=== PATIENT | female | born 1955 | race Caucasian/White ===

== ENCOUNTER → 2016-08-31 | Outpatient (REF) | payer BC ==
[2016-08-31 16:57] LABS: BASO # 0.1 K/mm3 (0.0-0.2); BASO % 1.3 % (0.0-1.0); EOS # 0.1 K/mm3 (0.0-0.50); EOS % 2.7 % (0.0-3.0); LARGE UNSTAINED CELL # 0.2 K/mm3 (0.0-0.4); LARGE UNSTAINED CELL % 3.4 % (0.0-4.0); LYMPH # 1.8 K/mm3 (1.5-4.5); LYMPH % 38.8 % (24.0-44.0); MEAN CORPUSCULAR HEMOGLOBIN 27.9 pg (27.0-33.0); MEAN CORPUSCULAR HGB CONC 33.1 g/dl (32.0-36.5); MEAN CORPUSCULAR VOLUME 84.3 fl (80.0-96.0); MONO # 0.3 K/mm3 (0.0-0.8); MONO % 6.2 % (0.0-5.0); NEUTROPHILS # 2.2 K/mm3 (1.8-7.7); NEUTROPHILS % 47.6 % (36.0-66.0); PLATELET COUNT, AUTOMATED 225 k/mm3 (150-450); RED CELL DISTRIBUTION WIDTH 13.9 % (11.5-14.5); WHITE BLOOD COUNT 4.5 K/mm3 (4.0-10.0)
[2016-08-31 17:09] LABS: ALBUMIN/GLOBULIN RATIO 1.21 (1.00-1.93); ALKALINE PHOSPHATASE 53 U/L (45-117); ALT/SGPT 29 U/L (12-78); ANION GAP 8 MEQ/L (8-16); AST/SGOT 21 U/L (15-37); BILIRUBIN,TOTAL 0.5 MG/DL (0.2-1.0); BLOOD UREA NITROGEN 16 MG/DL (7-18); CALCIUM LEVEL 9.4 MG/DL (8.8-10.2); CARBON DIOXIDE LEVEL 28 MEQ/L (21-32); CHLORIDE LEVEL 102 MEQ/L (98-107); CHOLESTEROL LEVEL 257 MG/DL (<200); CREATININE FOR GFR 0.92 MG/DL (0.55-1.02); GLOMERULAR FILTRATION RATE > 60.0 (>45); GLUCOSE, FASTING 92 MG/DL (80-110); POTASSIUM SERUM 4.1 MEQ/L (3.5-5.1); SODIUM LEVEL 138 MEQ/L (136-145); TOTAL PROTEIN 7.3 GM/DL (6.4-8.2); TRIGLYCERIDES LEVEL 66 MG/DL (<150)
== END ==
LOC: M SFHCCLAY 10:14
PROVIDERS: ATTEND Physician Assistant
DX: R53.83 Other fatigue (principal); E78.5 Hyperlipidemia, unspecified

== ENCOUNTER → 2017-01-29 | Outpatient (CLI) | payer BC ==
--- NOTE | 2017-01-29 15:39 | REP ---
Clinical: thoracic pain. Technique: AP, lateral, and swimmers views. Findings: Alignment and kyphosis is maintained. Vertebral bodies intact. No acute fracture / compression injury or subluxation. Minimal age-related changes include marginal spurring with endplate sclerosis. Paravertebral soft tissues are normal. Impression: Normal age appropriate thoracic spine series. Signed by David Campbell MD 01/29/2017 03:31 P
--- NOTE | 2017-01-29 15:41 | REP ---
Clinical: Neck pain. Technique: AP, lateral, flexion/extension, bilateral oblique, and open-mouth views of the cervical spine. Findings: Advanced multilevel degenerative changes include marginal osteophytes, endplate sclerosis, disc space narrowing and foraminal narrowing. Findings are most pronounced at the C5-6 and C6-7 levels. No acute fracture / compression injury or subluxation. Alignment maintained. Spinous processes are intact. Prevertebral soft tissues are normal. Open mouth view demonstrates normal C1-C2 articulation and odontoid process. Impression: Moderate/advanced multilevel degenerative changes. Signed by David Campbell MD 01/29/2017 03:32 P
== END ==
LOC: M CLY 14:47
PROVIDERS: ATTEND Nurse Practitioner Family
DX: M50.30 Other cervical disc degeneration, unspecified cervical region (principal)

== ENCOUNTER → 2017-04-12 | Outpatient (REF) | payer BC ==
[2017-04-12 11:38] LABS: BASO # 0.1 10^3/uL (0.0-0.2); BASO % 1.1 % (0.0-1.0); EOS # 0.4 10^3/uL (0.0-0.50); EOS % 5.2 % (0.0-3.0); HEMATOCRIT 36.9 % (36.0-47.0); HEMOGLOBIN 11.9 g/dl (12.0-16.0); IMMATURE GRANULOCYTE % 0.3 % (0-0); LYMPH # 1.8 10^3/uL (1.5-4.5); LYMPH % 25.3 % (24.0-44.0); MEAN CORPUSCULAR HGB CONC 32.2 g/dl (32.0-36.5); MEAN CORPUSCULAR VOLUME 83.7 fl (80.0-96.0); MONO # 0.5 10^3/uL (0.0-0.8); MONO % 7.5 % (0.0-5.0); NEUTROPHILS # 4.3 10^3/uL (1.8-7.7); NEUTROPHILS % 60.6 % (36.0-66.0); PLATELET COUNT, AUTOMATED 246 10^3/uL (150-450); RED BLOOD COUNT 4.41 10^6/uL (4.00-5.40); RED CELL DISTRIBUTION WIDTH 13.5 % (11.5-14.5); WHITE BLOOD COUNT 7.1 10^3/uL (4.0-10.0)
[2017-04-12 12:03] LABS: ERYTHROCYTE SEDIMENTATION RATE 20 mm/hr (0-30)
[2017-04-12 12:08] LABS: ALBUMIN/GLOBULIN RATIO 1.21 (1.00-1.93); ALKALINE PHOSPHATASE 55 U/L (45-117); ALT/SGPT 24 U/L (12-78); ANION GAP 7 MEQ/L (8-16); AST/SGOT 33 U/L (7-37); BILIRUBIN,TOTAL 0.3 MG/DL (0.2-1.0); BLOOD UREA NITROGEN 11 MG/DL (7-18); C REACTIVE PROTEIN QUANTITATIV < 0.30 MG/DL (0.00-0.30); CALCIUM LEVEL 9.2 MG/DL (8.8-10.2); CARBON DIOXIDE LEVEL 28 MEQ/L (21-32); CHLORIDE LEVEL 101 MEQ/L (98-107); CREATININE FOR GFR 1.01 MG/DL (0.55-1.30); GLOMERULAR FILTRATION RATE 59.5 (>45); GLUCOSE, FASTING 114 MG/DL (70-100); POTASSIUM SERUM 4.2 MEQ/L (3.5-5.1); RHEUMATOID FACTOR QUANT < 10.0 IU/ML (0-15.0); SODIUM LEVEL 136 MEQ/L (136-145); TOTAL PROTEIN 7.3 GM/DL (6.4-8.2)
[2017-04-14 14:14] LABS: ANA (HEP2) Positive (.); Lyme Disease IgG Ab 18 kDa Ban Absent (.); Lyme Disease IgG Ab 23 kDa Ban Absent (.); Lyme Disease IgG Ab 28 kDa Ban Absent (.); Lyme Disease IgG Ab 30 kDa Ban Absent (.); Lyme Disease IgG Ab 39 kDa Ban Absent (.); Lyme Disease IgG Ab 41 kDa Ban Absent (.); Lyme Disease IgG Ab 45 kDa Ban Absent (.); Lyme Disease IgG Ab 58 kDa Ban Absent (.); Lyme Disease IgG Ab 66 kDa Ban Absent (.); Lyme Disease IgG Ab 93 kDa Ban Absent (.); Lyme Disease IgG West Blot Int Negative (.); Lyme Disease IgG/IgM Antibodie <0.91 ISR (0.00-0.90); Lyme Disease IgM Ab 23 kDa Ban Absent (.); Lyme Disease IgM Ab 39 kDa Ban Absent (.); Lyme Disease IgM Ab 41 kDa Ban Absent (.); Lyme Disease IgM Ab Quantitati 0.85 index (0.00-0.79); Lyme Disease IgM West Blot Int Negative (.)
[2017-04-14 14:14] LABS: CYCLIC CITRULLINATED PEPTIDE 5 units (0-19)
== END ==
LOC: M SFHCCLAY 09:09
DX: M25.512 Pain in left shoulder (principal); M54.2 Cervicalgia; M47.22 Other spondylosis with radiculopathy, cervical region

== ENCOUNTER → 2017-05-13 | Outpatient (CLI) | payer BC ==
[~2017-05-13] MED LIST: PROHANCE 279.3MG/ML 15ML VIAL (A9576) As Ordered
== END ==
LOC: M RAD 10:11
DX: M47.22 Other spondylosis with radiculopathy, cervical region (principal)

== ENCOUNTER → 2017-05-18 | Outpatient (CLI) | payer BC | LOC: M RAD 08:02 | DX: M25.512 Pain in left shoulder (principal) ==

== ENCOUNTER → 2017-07-29 | Outpatient (CLI) | payer BC ==
[~2017-07-29] MED LIST changes: +ISOVUE-370 76% 100ML VIAL (Q9967) As Ordered; -PROHANCE 279.3MG/ML 15ML VIAL (A9576) As Ordered
== END ==
LOC: M RAD 11:19
DX: R22.1 Localized swelling, mass and lump, neck (principal)
CPT/HCPCS: Q9967

== ENCOUNTER → 2018-01-18 | Outpatient (REF) | payer BC ==
[2018-01-18 18:39] LABS: CREATININE FOR GFR 0.97 MG/DL (0.55-1.30); GLOMERULAR FILTRATION RATE > 60.0 (>45)
[2018-01-18 18:39] LABS: BLOOD UREA NITROGEN 9 MG/DL (7-18)
== END ==
LOC: M LABDRAWC 17:29
DX: M47.892 Other spondylosis, cervical region (principal)
CPT/HCPCS: 82565

== ENCOUNTER 2018-03-23 22:58 | Emergency (ER) | payer BC, OTHER ==
[~2018-03-23] VITALS: Ht 167.6 cm; Wt 59.1 kg
[2018-03-23] MEDS ORDERED: PREG25CA PO (23:12)
[2018-03-23] MEDS ORDERED: GABA-845 PO (23:12)
[2018-03-24 01:23] VITALS: BP 142/68
[2018-03-24] MEDS ORDERED: KETOROLAC 60 MG/2 ML VIAL (J1885) IM ONE (02:15)
--- NOTE | 2018-03-24 02:16 | REP ---
Clinical: Nontraumatic pain left knee. Technique: AP, lateral, bilateral oblique and sunrise views of the left knee. Findings: Mild/early moderate osteoarthritic degenerative changes include subchondral sclerosis primarily involving the lateral tibial plateau with associated joint space narrowing as well as early osteophyte formation along the bilateral femoral condyles, lateral tibial margin, and patellar contour. [place] view demonstrates increase sclerosis along the posterior patellar margin with decreased lateral joint space. No acute fracture dislocation. No significant swelling. No effusion. Impression: Mild/early moderate tricompartmental degenerative changes. Electronically Signed by David Campbell MD 03/24/2018 02:08 A
[2018-03-24] MEDS ORDERED: NAPR-50 PO (02:35)
== END 2018-03-24 02:38 | disposition home or self-care (01) ==
LOC: M ED 22:58
DX: M17.12 Unilateral primary osteoarthritis, left knee (principal); E07.9 Disorder of thyroid, unspecified; E78.5 Hyperlipidemia, unspecified; G89.4 Chronic pain syndrome; Z85.850 Personal history of malignant neoplasm of thyroid; Z79.899 Other long term (current) drug therapy

== ENCOUNTER → 2018-10-06 | Outpatient (REF) | payer OTHER ==
[~2018-10-06] MED LIST changes: +ASPI81TA85 PO; +GABA-845 PO; -ISOVUE-370 76% 100ML VIAL (Q9967) As Ordered; +LEVO137T2 PO; +NAPR-837 PO; +PREG25CA PO; +SIMV40TA2 PO; +TIZA2CAP PO
[2018-10-06 12:01] LABS: BASO # 0.1 10^3/uL (0.0-0.2); BASO % 1.1 % (0.0-1.0); EOS # 0.2 10^3/uL (0.0-0.50); EOS % 3.2 % (0.0-3.0); HEMATOCRIT 36.8 % (36.0-47.0); HEMOGLOBIN 12.1 g/dl (12.0-15.5); LYMPH # 1.9 10^3/uL (1.5-4.5); LYMPH % 40.5 % (24.0-44.0); MEAN CORPUSCULAR HEMOGLOBIN 27.7 pg (27.0-33.0); MEAN CORPUSCULAR HGB CONC 32.9 g/dl (32.0-36.5); MEAN CORPUSCULAR VOLUME 84.2 fl (80.0-96.0); MONO # 0.5 10^3/uL (0.0-0.8); MONO % 9.9 % (0.0-5.0); NEUTROPHILS # 2.1 10^3/uL (1.8-7.7); NEUTROPHILS % 44.7 % (36.0-66.0); PLATELET COUNT, AUTOMATED 287 10^3/uL (150-450); RED BLOOD COUNT 4.37 10^6/uL (4.00-5.40); WHITE BLOOD COUNT 4.6 10^3/uL (4.0-10.0)
[2018-10-06 12:39] LABS: ALBUMIN 4.2 GM/DL (3.2-5.2); ALT/SGPT 23 U/L (12-78); BILIRUBIN,TOTAL 0.4 MG/DL (0.2-1.0); BLOOD UREA NITROGEN 10 MG/DL (7-18); CALCIUM LEVEL 9.7 MG/DL (8.8-10.2); CARBON DIOXIDE LEVEL 27 MEQ/L (21-32); CHLORIDE LEVEL 97 MEQ/L (98-107); CHOLESTEROL LEVEL 282 MG/DL (<200); CHOLESTEROL RISK RATIO 4.338 (<5); CREATININE FOR GFR 0.88 MG/DL (0.55-1.30); FREE T4 1.37 NG/DL (0.76-1.46); GLOMERULAR FILTRATION RATE > 60.0 (>45); GLUCOSE, FASTING 89 MG/DL (70-100); HDL CHOLESTEROL 65 MG/DL (>40); LDL CHOLESTEROL 186 MG/DL (<100); NON-HDL-C 217 MG/DL; POTASSIUM SERUM 4.1 MEQ/L (3.5-5.1); SODIUM LEVEL 133 MEQ/L (136-145); TOTAL PROTEIN 7.4 GM/DL (6.4-8.2); TRIGLYCERIDES LEVEL 156 MG/DL (<150)
== END ==
LOC: M LABDRAWC 11:25
PROVIDERS: ATTEND Internal Medicine
DX: Z13.89 Encounter for screening for other disorder (principal); E89.0 Postprocedural hypothyroidism; Z13.220 Encounter for screening for lipoid disorders

== ENCOUNTER 2018-10-07 16:23 | Emergency (ER) | payer OTHER ==
[~2018-10-07] VITALS: Ht 170.2 cm; Wt 60.1 kg
[~2018-10-07 16:23] MED LIST changes: -ASPI81TA85 PO; -LEVO137T2 PO; -SIMV40TA2 PO; -TIZA2CAP PO
[2018-10-07] MEDS ORDERED: TIZA2CAP PO (16:34)
[2018-10-07] MEDS ORDERED: LEVO137T2 PO (16:34)
--- NOTE | 2018-10-07 17:02 | REPVR ---
EXAM: CT Head Without Contrast EXAM DATE/TIME: 10/07/2018 4:50 PM CLINICAL HISTORY: 63 years old, female; Visual disturbance; Additional info: CVA - nursing interventions must not delay CT TECHNIQUE: Imaging protocol: Computed tomography images of the head without contrast. Radiation optimization: All CT scans at this facility use at least one of these dose optimization techniques: automated exposure control; mA and/or kV adjustment per patient size (includes targeted exams where dose is matched to clinical indication); or iterative reconstruction. Other technique: STROKE PROTOCOL was implemented. COMPARISON: No relevant prior studies available. FINDINGS: Brain: Normal. No hemorrhage. Unremarkable white matter. No mass effect. Ventricles: Normal. No ventriculomegaly. Bones/joints: Unremarkable. No acute fracture. Sinuses: Visualized sinuses are unremarkable. No fluid levels. Mastoid air cells: Visualized mastoid air cells are well aerated. No mastoid effusion. Soft tissues: Unremarkable. IMPRESSION: No acute intracranial abnormality. ASSESSMENT: ASPECTS ([place] Stroke Program Early CT Score) is 10. Electronically signed by: Shaka Catalan On 10/07/2018 17:01:58 PM
--- NOTE | 2018-10-07 17:29 | REP ---
CHEST: SINGLE VIEW: There is no evidence of acute infiltrate. No pleural effusion is seen. The heart is normal in size. The mediastinal silhouette is unremarkable. The visualized osseous structures are intact. IMPRESSION: No acute pulmonary disease. Electronically Signed by Demarco Swift MD 10/11/2018 05:43 P
[2018-10-07 17:33] LABS: BASO # 0.1 10^3/uL (0.0-0.2); BASO % 0.8 % (0.0-1.0); EOS # 0.1 10^3/uL (0.0-0.50); EOS % 1.3 % (0.0-3.0); HEMATOCRIT 35.6 % (36.0-47.0); HEMOGLOBIN 11.7 g/dl (12.0-15.5); LYMPH # 1.6 10^3/uL (1.5-4.5); LYMPH % 22.7 % (24.0-44.0); MEAN CORPUSCULAR HEMOGLOBIN 26.8 pg (27.0-33.0); MEAN CORPUSCULAR HGB CONC 32.9 g/dl (32.0-36.5); MEAN CORPUSCULAR VOLUME 81.7 fl (80.0-96.0); MONO # 0.6 10^3/uL (0.0-0.8); MONO % 8.4 % (0.0-5.0); NEUTROPHILS # 4.8 10^3/uL (1.8-7.7); NEUTROPHILS % 66.2 % (36.0-66.0); PLATELET COUNT, AUTOMATED 299 10^3/uL (150-450); RED BLOOD COUNT 4.36 10^6/uL (4.00-5.40); WHITE BLOOD COUNT 7.2 10^3/uL (4.0-10.0)
[2018-10-07 17:44] LABS: PROTHROMBIN TIME 12.9 SECONDS (11.8-14.0)
[2018-10-07 17:45] LABS: PARTIAL THROMBOPLASTIN TIME 34.3 SECONDS (25.0-38.4)
[2018-10-07 17:52] LABS: BLOOD UREA NITROGEN 9 MG/DL (7-18); CALCIUM LEVEL 10.2 MG/DL (8.8-10.2); CARBON DIOXIDE LEVEL 28 MEQ/L (21-32); CHLORIDE LEVEL 98 MEQ/L (98-107); CK-MB VALUE MASS 2.6 NG/ML (<3.6); CPK CREATINE PHOSPHOKINASE 185 U/L (26-192); CREATININE FOR GFR 0.87 MG/DL (0.55-1.30); GLOMERULAR FILTRATION RATE > 60.0 (>45); GLUCOSE, FASTING 98 MG/DL (70-100); MB/CK RELATIVE INDEX 1.41 (< OR =4); POTASSIUM SERUM 3.7 MEQ/L (3.5-5.1); SODIUM LEVEL 133 MEQ/L (136-145); TROPONIN I < 0.02 NG/ML (< 0.10)
--- NOTE | 2018-10-07 19:07 | REPVR ---
EXAM: MR Angiogram Head Without Contrast, Arteries EXAM DATE/TIME: 10/07/2018 6:57 PM CLINICAL HISTORY: 63 years old, female; Visual disturbance; Diplopia; Additional info: Double vision RO CVA; Optho says normal eyes TECHNIQUE: Imaging protocol: MR angiogram head without contrast. Exam focused on the arteries. COMPARISON: CT Head without contrast 10/07/2018 4:48 PM FINDINGS: Right internal carotid artery: Unremarkable. Intracranial segment is patent with no significant stenosis. No aneurysm. Right anterior cerebral artery: Unremarkable. No occlusion or significant stenosis. No aneurysm. Right middle cerebral artery: Unremarkable. No occlusion or significant stenosis. No aneurysm. Right posterior cerebral artery: Unremarkable. No occlusion or significant stenosis. No aneurysm. Right vertebral artery: Unremarkable. No occlusion or significant stenosis. No aneurysm. Left internal carotid artery: Unremarkable. Intracranial segment is patent with no significant stenosis. No aneurysm. Left anterior cerebral artery: Unremarkable. No occlusion or significant stenosis. No aneurysm. Left middle cerebral artery: Unremarkable. No occlusion or significant stenosis. No aneurysm. Left posterior cerebral artery: Unremarkable. No occlusion or significant stenosis. No aneurysm. Left vertebral artery: Unremarkable. No occlusion or significant stenosis. No aneurysm. Basilar artery: Unremarkable. No occlusion or significant stenosis. No aneurysm. IMPRESSION: No acute findings. Electronically signed by: Shaka Catalan On 10/07/2018 19:07:16 PM
--- NOTE | 2018-10-07 19:09 | REPVR ---
EXAM: MR Head Without Contrast EXAM DATE/TIME: 10/07/2018 6:57 PM CLINICAL HISTORY: 63 years old, female; Visual disturbance; Additional info: Double vision RO CVA; Optho says normal eyes TECHNIQUE: Imaging protocol: MR of the head without contrast. COMPARISON: MRA BRAIN W/O CONTRAST 10/07/2018 6:35 PM FINDINGS: Brain: Normal. No acute infarct. No hemorrhage. No significant white matter disease. No edema. Ventricles: Normal. No ventriculomegaly. Bones/joints: Unremarkable. Soft tissues: Normal. Sinuses: Normal as visualized. No acute sinusitis. Mastoid air cells: Normal as visualized. No mastoid effusion. Orbits: Unremarkable. IMPRESSION: No acute findings. Electronically signed by: Shaka Catalan On 10/07/2018 19:09:28 PM
[2018-10-07] MEDS ORDERED: ASPI81TA85 PO (20:30)
[2018-10-07] MEDS ORDERED: SIMV40TA2 PO (20:30)
[2018-10-07 20:40] VITALS: BP 131/79
--- NOTE | 2018-10-08 09:38 | ECGEPIP ---
[facility] - ED Test Date: 2018-10-07 Pat Name: JIMY ARIAS Department: Room: - Gender: Female Software Writer: karol : [id number] Requested By: Nicholas Thornton Order Number: [id number] Reading MD: Gale Platt Measurements Intervals [place] Rate: 76 P: 62 IN: 144 QRS: 4 QRSD: 94 T: 40 QT: 368 QTc: 415 Interpretive Statements SINUS RHYTHM NSTTW abnormalities No prior Electronically Signed on 10-08-2018 9:37:58 EDT by Gale Platt
== END 2018-10-07 20:51 | disposition home or self-care (01) ==
LOC: M ED 16:23
DX: H49.20 Sixth [abducent] nerve palsy, unspecified eye (principal); Z79.899 Other long term (current) drug therapy; Z79.82 Long term (current) use of aspirin; Z79.890 Hormone replacement therapy

== ENCOUNTER → 2018-10-17 | Outpatient (REF) | payer OTHER ==
[~2018-10-17] MED LIST changes: +ASPI81TA85 PO; +LEVO137T2 PO; +SIMV40TA2 PO; +TIZA2CAP PO
[2018-10-17 14:35] LABS: FOLATE 21.5 NG/ML (>5.4); FREE T4 1.41 NG/DL (0.76-1.46); RHEUMATOID FACTOR QUANT < 10.0 IU/ML (<15.0); VITAMIN B12 LEVEL 1762 PG/ML (247-911)
[2018-10-26 00:09] LABS: ACETYLCHOLINE RCPTOR BINDING A 0.17 nmol/L (0.00-0.24); ANTI DOUBLE STRAND-DNA AB 2 IU/mL (0-9); ANTINUCLEAR ANTIBODIES DIRECT Positive (Negative); Lyme Disease IgG/IgM Antibodie <0.91 ISR (0.00-0.90); Lyme Disease IgM Ab Quantitati <0.80 index (0.00-0.79); RNP ANTIBODIES 0.4 AI (0.0-0.9); SJOGREN'S ANTI SS-A 1.2 AI (0.0-0.9); SJOGREN'S ANTI SS-B <0.2 AI (0.0-0.9); SMITH ANTIBODIES 0.2 AI (0.0-0.9); STRIATIONAL ANTIBODIES Negative (Neg:<1:40); VITAMIN B6,PYRIDOXAL PHOSPHATE 55.4 ug/L (2.0-32.8)
== END ==
LOC: M LABNEURO 09:01
PROVIDERS: ATTEND Psychiatry & Neurology Neurology
DX: Z11.8 Encounter for screening for other infectious and parasitic diseases (principal); E07.9 Disorder of thyroid, unspecified; E11.9 Type 2 diabetes mellitus without complications; H53.2 Diplopia

== ENCOUNTER → 2020-07-25 | Outpatient (CLI) | payer BC ==
[~2020-07-25] MED LIST changes: -ASPI81TA85 PO; +ASPI81TA86 PO; +GABA-283 PO; -GABA-845 PO; -SIMV40TA2 PO; +SIMV40TA20 PO
--- NOTE | 2020-07-25 13:44 | REP ---
INDICATION: UNSP ROTATR-CUFF TEAR/RUPTR OF LEFT SHOULDER, NOT TRAUMA COMPARISON: None. TECHNIQUE: Internal rotation, external rotation, and Y view. FINDINGS: No acute fracture or dislocation. The acromioclavicular and glenohumeral joints are intact. No periarticular calcifications or degenerative changes are appreciated. Sub acromial space is normal. Surrounding soft tissues are unremarkable. IMPRESSION: Normal left shoulder radiographs. <Electronically signed by David Campbell > 07/25/20 0040
== END ==
LOC: M RAD 10:44
DX: M75.102 Unspecified rotator cuff tear or rupture of left shoulder, not specified as traumatic (principal)

== ENCOUNTER → 2020-09-20 | Outpatient (CLI) | payer BC ==
--- NOTE | 2020-09-20 09:37 | REP ---
INDICATION: DISC DISEASE. COMPARISON: Comparison MRI study of the cervical spine is from May 13, 2017.. TECHNIQUE: Sagittal and axial T1 and T2-weighted scans are acquired in the usual fashion with and without fat saturation. Sequences include spin echo, turbo spin-echo, and STIR imaging sequences. FINDINGS: There is straightening of the normal cervical lordosis. Cervical cord is normal in course, caliber and signal intensity. Cortical and medullary bone signal intensity are normal. Vertebral body heights are preserved. No extra vertebral abnormality is observed. Axial and sagittal images taken at C2-C3 demonstrate a small central focal disc protrusion at C2-C3 indenting the ventral subarachnoid space unchanged from the comparison study. No foraminal narrowing or spinal stenosis. At C3-C4, there is a right posterior/right foraminal disc protrusion associated with discogenic spurring producing right-sided neural foraminal narrowing. this is unchanged. There is an intramedullary lesion in the left dorsal spinal cord at the C3-4 disc level characterized by low T2 and low to intermediate T1 signal intensity. This is unchanged from the comparison study May 13, 2017. There is no cord enlargement or expansion. Once again, this is felt to be most compatible with hemosiderin/broad product deposition from previous petechial hemorrhage. Cavernous angioma versus previous trauma. on today's images, this lesion measures 8 mm in craniocaudal span by 5 mm in greatest medial to lateral dimension. At C4-C5, there is diffuse disc bulging and osteophytic ridging indenting the ventral margin of the thecal sac. There is minimal uncovertebral spurring on the right. This is unchanged. At C5-C6, there is central canal stenosis due to moderate posterior disc bulging and osteophytic ridging flattening the ventral margin of the cord and effacing the ventral CSF. There is ligamentum flavum hypertrophy effacing the dorsal CSF. The midline AP dimension of the thecal sac at C5-6 is 6.6 mm. There is bilateral uncovertebral spurring and bilateral neural foraminal narrowing. These findings are unchanged from the comparison study 2018. At C6-C7, there is posterior osteophytic ridging and diffuse disc bulging effacing the ventral subarachnoid space but not compressing the cord. No central canal stenosis is seen. There is mild left-sided neural foraminal narrowing due to uncovertebral spurring. The C7-T1 level is unremarkable. There are small focal disc protrusions at T1-T2 and at T2-T3 unchanged. IMPRESSION: 1. Degenerative spondylosis changes. These are most pronounced at C5-6 where there is central canal stenosis and bilateral neural foraminal narrowing. 2. Right posterior/right foraminal disc protrusion again seen at C3-4 with significant right neural foraminal narrowing at this level. 3. Intramedullary low T2 the signal intensity lesion in the spinal cord to the left of midline at C3-4 consistent with hemosiderin deposition. 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 This lesion is unchanged when compared with the May 13, 2017 prior study. <Electronically signed by Noé Armenta > 09/20/20 0933
== END ==
LOC: M RAD 07:52
DX: M54.5 Low back pain (principal)

== ENCOUNTER → 2021-06-11 | Outpatient (REF) | payer BC ==
[2021-06-12 05:07] LABS: MUMPS VIRUS IgG ANTIBODY >300.0 AU/mL (Immune >10.9); RUBEOLA IgG ANTIBODY >300.0 AU/mL (Immune >16.4)
== END ==
LOC: M LAB REF 12:26
PROVIDERS: ATTEND Internal Medicine
DX: Z02.1 Encounter for pre-employment examination (principal)

== ENCOUNTER → 2021-11-26 | Outpatient (CLI) | payer BC, MEDICARE, SELFPAY | LOC: M WHC 12:21 | PROVIDERS: ATTEND Internal Medicine | DX: N83.209 Unspecified ovarian cyst, unspecified side (principal) ==

== ENCOUNTER → 2022-03-25 | Outpatient (CLI) | payer MEDICARE ==
[~2022-03-25] MED LIST changes: +APAP325T4 PO; +GABA-1171 PO; +IBUP200C28 PO; +SYNT112T2 PO
== END ==
LOC: M LABSMTC 10:30
PROVIDERS: ATTEND Anesthesiology
DX: Z01.812 Encounter for preprocedural laboratory examination (principal); Z20.822 Contact with and (suspected) exposure to COVID-19

== ENCOUNTER 2022-03-30 09:47 | Day surgery (SDC) | payer MEDICARE ==
[~2022-03-30] VITALS: Ht 167.6 cm; Wt 61.2 kg
[~2022-03-30 09:47] MED LIST changes: +NS 1,000 ML IV ONE
[2022-03-30] MEDS ORDERED: propofoL 200 MG/20 ML VIAL As Ordered ONE ×3 (10:22→11:09)
[2022-03-30] MEDS ORDERED: LIDOCAINE 2% 100MG/5ML SDV (FOR ANES.) As Ordered ONE (10:22)
[2022-03-30 11:02] VITALS: BP 112/71
== END 2022-03-30 11:18 | disposition home or self-care (01) ==
LOC: M OPP 09:47
PROVIDERS: ATTEND Internal Medicine Gastroenterology
DX: K63.5 Polyp of colon (principal); K64.4 Residual hemorrhoidal skin tags; K64.8 Other hemorrhoids; Q43.8 Other specified congenital malformations of intestine; Z79.1 Long term (current) use of non-steroidal anti-inflammatories (NSAID); Z79.890 Hormone replacement therapy; Z79.899 Other long term (current) drug therapy; E03.9 Hypothyroidism, unspecified; Z80.8 Family history of malignant neoplasm of other organs or systems; Z85.850 Personal history of malignant neoplasm of thyroid

== ENCOUNTER → 2023-08-16 | Outpatient (REF) | payer MEDICARE ==
[~2023-08-16] MED LIST changes: -GABA-283 PO; +GABA-284 PO; -NS 1,000 ML IV ONE
[2023-08-18 15:27] LABS: ANA SCREEN, IFA NEGATIVE (NEGATIVE)
[2023-08-18 23:03] LABS: CYCLIC CITRULLINATED PEPTIDE < 16 UNITS (<20)
== END ==
LOC: M LAB REF 16:35
PROVIDERS: ATTEND Internal Medicine
DX: M06.9 Rheumatoid arthritis, unspecified (principal); M25.50 Pain in unspecified joint

== ENCOUNTER → 2024-02-03 | Outpatient (CLI) | payer MEDICARE ==
[~2024-02-03] MED LIST changes: +ISOVUE-370 76% 100ML VIAL ONE
== END ==
LOC: M PLAIMG 08:19
PROVIDERS: ATTEND Internal Medicine
DX: R59.1 Generalized enlarged lymph nodes (principal); M47.812 Spondylosis without myelopathy or radiculopathy, cervical region; E89.0 Postprocedural hypothyroidism
CPT/HCPCS: 70491; Q9967

== ENCOUNTER → 2024-02-17 | Outpatient (CLI) | payer MEDICARE ==
[~2024-02-17] MED LIST changes: -ISOVUE-370 76% 100ML VIAL ONE
== END ==
LOC: M RAD 13:50
PROVIDERS: ATTEND Internal Medicine
DX: R22.32 Localized swelling, mass and lump, left upper limb (principal)

== ENCOUNTER 2024-04-08 12:37 | Emergency (ER) | payer MEDICARE ==
[~2024-04-08] VITALS: Ht 167.6 cm; Wt 68.4 kg
[2024-04-08] MEDS: PERCOCET 5MG/325MG TAB PO ONE (14:06)
[2024-04-08 16:01] VITALS: BP 155/86; TEMP 97.7; O2SAT 100
== END 2024-04-08 16:10 | disposition home or self-care (01) ==
LOC: M ED 12:37
DX: S42.212A Unspecified displaced fracture of surgical neck of left humerus, initial encounter for closed fracture (principal); W00.0XXA Fall on same level due to ice and snow, initial encounter; Y92.009 Unspecified place in unspecified non-institutional (private) residence as the place of occurrence of the external cause; Y93.9 Activity, unspecified; Y99.9 Unspecified external cause status; Z79.899 Other long term (current) drug therapy

== ENCOUNTER → 2024-06-06 | Outpatient (REF) | payer MEDICARE | LOC: M LAB REF 12:25 | PROVIDERS: ATTEND Internal Medicine | DX: R31.0 Gross hematuria (principal); R35.0 Frequency of micturition ==

== ENCOUNTER → 2024-06-13 | Outpatient (REF) | payer MEDICARE | LOC: M LAB REF 13:58 | PROVIDERS: ATTEND Internal Medicine | DX: R31.9 Hematuria, unspecified (principal); R82.89 Other abnormal findings on cytological and histological examination of urine ==

== ENCOUNTER → 2024-06-15 | Outpatient (CLI) | payer MEDICARE ==
[~2024-06-15] MED LIST changes: +ISOVUE-370 76% 100ML VIAL ONE
== END ==
LOC: M PLAIMG 15:17
PROVIDERS: ATTEND Internal Medicine
DX: R31.0 Gross hematuria (principal); Z80.52 Family history of malignant neoplasm of bladder; R93.89 Abnormal findings on diagnostic imaging of other specified body structures
CPT/HCPCS: 74178; Q9967

== ENCOUNTER → 2024-06-19 | Outpatient (REF) | payer MEDICARE ==
[~2024-06-19] MED LIST changes: -ISOVUE-370 76% 100ML VIAL ONE
== END ==
LOC: M LAB REF 16:54
PROVIDERS: ATTEND Internal Medicine
DX: R31.0 Gross hematuria (principal)